=== PATIENT | female | born 1935 | race Caucasian/White ===

== ENCOUNTER 2019-03-15 12:39 | Inpatient (IN) | payer MEDICARE ==
[~2019-03-15] VITALS: Ht 157.5 cm; Wt 68.9 kg
[2019-03-15 13:07] LABS: BASOPHILS % (AUTO) 0.3 % (0.0-5.0); HEMATOCRIT 44.5 % (36-48); LYMPHOCYTES % (AUTO) 6.1 % (21.0-51.0); MEAN CORPUSCULAR HEMOGLOBIN 30.3 pg (27.0-33.0); MEAN CORPUSCULAR HGB CONC 34.1 g/dL (32.0-36.0); MEAN CORPUSCULAR VOLUME 89.1 fL (79-99); MONOCYTES % (AUTO) 7.4 % (3.0-13.0); NEUTROPHILS % (AUTO) 86.2 % (40.0-77.0); PLATELET COUNT (AUTO) 222 K/uL (130-400); RED BLOOD CELL COUNT(AUTO) 4.99 MIL/uL (4.00-5.50); RED CELL DISTRIBUTION WIDTH 13.8 % (11.0-15.5)
[2019-03-15 13:17] LABS: POTASSIUM 3.8 mmol/L (3.5-5.1)
[2019-03-15 13:26] LABS: INR 0.98 (0.85-1.15); PARTIAL THROMBOPLASTIN TIME 28.2 SEC (26.3-35.5); PROTHROMBIN TIME 10.3 SEC (9.6-11.6)
[2019-03-15] MEDS ORDERED: ONDANSETRON HCL 4 MG/2 ML VIAL ONE (13:35)
[2019-03-15] MEDS ORDERED: MORPHINE SULFATE 2 MG/ML 1ML SYG ONE (13:36)
[2019-03-15 13:40] LABS: ALBUMIN 4.2 g/dL (3.5-5.0); BILIRUBIN,TOTAL 1.5 mg/dL (0.2-1.0); TOTAL PROTEIN, SERUM 7.7 g/dL (6.0-8.3)
[2019-03-15] MEDS ORDERED: SODIUM CHLORIDE 0.9% 500ML 500 ML IV ONE (13:46)
[2019-03-15] MEDS ORDERED: SODIUM CHLORIDE 0.9% 1000ML 1,000 ML IV ONE (14:28)
[2019-03-15 15:08] LABS: APPEARANCE,URINE Clear (CLEAR); BILIRUBIN,URINE Negative (NEGATIVE); COLOR,URINE Yellow (YELLOW); GLUCOSE, URINE (UA) Negative (NEGATIVE); KETONES,URINE Negative (NEGATIVE); LEUKOCYTE ESTERASE ,URINE Negative (NEGATIVE); NITRATE,URINE Negative (NEGATIVE); OCCULT BLOOD,URINE Small (NEGATIVE); PROTEIN,URINE Negative (NEGATIVE); UROBILINOGEN,URINE 0.2 mg/dL (0.2-1.0)
[2019-03-15] MEDS ORDERED: ACETAMINOPHEN-CODEINE 300/30MG TAB PO PRN (15:45)
[2019-03-15] MEDS ORDERED: ACETAMINOPHEN 325 MG TAB PO PRN (15:45)
[2019-03-15 15:49] LABS: BACTERIA,URINE Few /HPF (None Seen); SQUAMOUS EPITHELIAL CELL,UR 0-2 /HPF (0-2)
[2019-03-15 17:05] VITALS: BP 136/71
[2019-03-15] MEDS ORDERED: AMLO5TAB9 PO (17:22)
--- NOTE | 2019-03-15 17:29 | NUR ---
PLACED CALL TO DR ESCOBAR FOR ORTHO CONSULT, NO ANSWER, IN PROCEDURE, WILL CALL AGAIN.
--- NOTE | 2019-03-15 18:16 | NUR ---
SPOKE TO DR. ESCOBAR REGARDING NEW CONSULT. PER DR. ESCOBAR, PATIENT HAS RHABDO AND WOULD NEED TO BE HYDRATED BEFORE PLANNING SURGERY. POSSIBLE SURGERY FOR FRIDAY. PATIENT MAY RESUME DIET.
[2019-03-15 20:12] VITALS: BP 138/71
[2019-03-16] VITALS (7 sets, daily range): BP systolic 115–152; BP diastolic 65–79
[2019-03-16 05:03] LABS: HEMATOCRIT 34.9 % (36-48); MEAN CORPUSCULAR HEMOGLOBIN 30.2 pg (27.0-33.0); MEAN CORPUSCULAR HGB CONC 34.2 g/dL (32.0-36.0); MEAN CORPUSCULAR VOLUME 88.2 fL (79-99); PLATELET COUNT (AUTO) 194 K/uL (130-400); RED BLOOD CELL COUNT(AUTO) 3.96 MIL/uL (4.00-5.50); RED CELL DISTRIBUTION WIDTH 13.9 % (11.0-15.5); WHITE BLOOD COUNT (AUTO) 11.2 K/uL (4.8-10.8)
[2019-03-16 05:32] LABS: BILIRUBIN,TOTAL 0.9 mg/dL (0.2-1.0); CREATININE 0.8 mg/dL (0.5-1.5); POTASSIUM 3.6 mmol/L (3.5-5.1); TOTAL PROTEIN, SERUM 5.9 g/dL (6.0-8.3)
[2019-03-16] MEDS: PANTOPRAZOLE SODIUM 40 MG TABLET.DR PO SCH ×2 (07:56→09:00)
[2019-03-16] MEDS ORDERED: ENOXAPARIN SODIUM 40 MG/0.4 ML SYRINGE SQ SCH (08:30)
[2019-03-16] MEDS: AMLODIPINE BESYLATE 5 MG TAB PO SCH (09:20)
[2019-03-16] MEDS: SODIUM CHLORIDE 0.9% 1000ML 1,000 ML IV SCH ×2 (13:57→15:33)
--- NOTE | 2019-03-16 14:54 | NUR ---
RD NOTIFICATION Diet: Heart Healthy. Meal intake 50% and has good appetite. Pt loves eating sweets instead of food. Pt claims to eat this way all her life and refuses to change that. LBM: 03/14. No significant weight changes noted. Continue current diet Encourage meal intake daily Assisted feedings with all meals if family not present Will monitor and follow up as needed Addendum: 03/16/19 at [address] Amended: Links added.
--- NOTE | 2019-03-16 15:13 | NUR ---
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 ALSO HAS A CANE. NEW REFERRAL FOR SNF, OPTIONS GIVEN. POA AND PATIENT TO DISCUSS OPTIONS FOR SNF. RACHEAL PENDING SIGNATURE. Addendum: 03/16/19 at 1519 by STEFAN JOAQUIN RN CM Amended: Links added.
[2019-03-17] VITALS (24 sets, daily range): BP systolic 107–133; BP diastolic 53–74
[2019-03-17] MEDS: SODIUM CHLORIDE 0.9% 1000ML 1,000 ML IV SCH ×5 (01:43→22:07)
[2019-03-17 05:36] LABS: HEMATOCRIT 30.2 % (36-48); MEAN CORPUSCULAR HEMOGLOBIN 31.2 pg (27.0-33.0); NUCLEATED RED BLOOD CELLS 0.1 % (0.0-0.19); PLATELET COUNT (AUTO) 152 K/uL (130-400); RED CELL DISTRIBUTION WIDTH 13.3 % (11.0-15.5); WHITE BLOOD COUNT (AUTO) 8.4 K/uL (4.8-10.8)
[2019-03-17 05:44] LABS: BAND NEUTROPHILS % (MANUAL) 3 % (0-2); BASOPHILS % (MANUAL) 2 % (0-2); EOSINOPHILS % (MANUAL) 2 % (1-6); LYMPHOCYTES % (MANUAL) 15 % (22-44); MAN.DIFF COMMENT-IMPRESSION MANUAL DIFFERENTIAL; MONOCYTES % (MANUAL) 6 % (2-9); PLATELET MORPHOLOGY COMMENT ADEQUATE; SEGMENTED NEUTROPHILS % 72 % (40-70)
[2019-03-17 05:56] LABS: ALBUMIN 2.5 g/dL (3.5-5.0); BILIRUBIN,TOTAL 0.8 mg/dL (0.2-1.0); CREATININE 0.7 mg/dL (0.5-1.5); POTASSIUM 3.2 mmol/L (3.5-5.1)
[2019-03-17] MEDS ORDERED: CEFAZOLIN SODIUM 1 GM VIAL IVP PRN (06:00)
--- NOTE | 2019-03-17 06:51 | NUR ---
OFF OF UNIT PT BEING TRANSFERRED TO PRE-OP AT THIS TIME. AWAKE, ALERT AND RESPONSIVE, NO C/O PAIN OR DISCOMFORT AT THIS TIME. DENTURES WERE LEFT IN PATIENT ROOM, INSIDE DENTURE CUP. NO FAMILY MEMBERS AT BEDSIDE AT THIS TIME.
[2019-03-17] MEDS ORDERED: LACTATED RINGERS 1000ML 1,000 ML IV ONE (06:57)
[2019-03-17] MEDS ORDERED: CEFAZOLIN SODIUM 1 GM VIAL ONE (07:39)
[2019-03-17] MEDS ORDERED: LIDOCAINE PF 2% 5ML ABBOJECT ONE (08:09)
[2019-03-17] MEDS ORDERED: ROCURONIUM 10MG/1ML SYR 10 MG/ML ML ONE (08:10)
[2019-03-17] MEDS ORDERED: SUCCINYLCHOLINE 200MG/10ML SYR ONE (08:10)
[2019-03-17] MEDS ORDERED: PROPOFOL 10 MG/ML 20ML VIAL IV ONE (08:10)
[2019-03-17] MEDS ORDERED: FENTANYL CITRATE PF 50 MCG/1 ML 2ML VIAL ONE (08:10)
[2019-03-17] MEDS ORDERED: ROPIVACAINE 0.5% 5MG/ML 30ML IJ ONE (08:11)
[2019-03-17] MEDS ORDERED: EPHEDRINE SULFATE 50 MG/ML AMPULE ONE (09:05)
[2019-03-17] MEDS ORDERED: PHENYLEPHRINE HCL 10 MG/ML 1ML VIAL IV ONE (10:19)
[2019-03-17] MEDS ORDERED: ONDANSETRON HCL 4 MG/2 ML VIAL ONE (11:48)
[2019-03-17] MEDS ORDERED: GLYCOPYRROLATE 1 MG/5 ML SYRINGE ONE (11:48)
[2019-03-17] MEDS ORDERED: NEOSTIGMINE 5MG/5ML SYR IV ONE (11:48)
[2019-03-17] MEDS ORDERED: ESMOLOL HCL 10 MG/ML 10 ML VIAL ONE (11:54)
[2019-03-17] MEDS ORDERED: POTASSIUM CHLORIDE 20MEQ/100ML 100 ML IV PRN (12:15)
[2019-03-17] MEDS ORDERED: TEMAZEPAM 15 MG CAPSULE PO PRN (12:15)
[2019-03-17] MEDS ORDERED: DIPHENHYDRAMINE HCL 25 MG CAPSULE PO PRN (12:15)
[2019-03-17] MEDS ORDERED: HYDROCODONE/ACETAMINOPHEN 5/325 MG TAB PO PRN ×2 (12:15)
[2019-03-17] MEDS ORDERED: LIDOCAINE HCL-MPF 1% 2ML VIAL IV PRN (12:15)
[2019-03-17] MEDS ORDERED: CALCIUM CARBONATE 500 MG TABLET PO PRN (12:15)
[2019-03-17] MEDS ORDERED: PROMETHAZINE HCL 25 MG/ML 1ML AMPULE IM PRN (12:15)
[2019-03-17] MEDS ORDERED: DiphenhydrAMINE HCL 50 MG/ML VIAL IVP PRN (12:15)
[2019-03-17] MEDS ORDERED: FERROUS FUMARATE 324 MG TABLET PO PRN (12:15)
[2019-03-17] MEDS: ACETAMINOPHEN EXTRA STRENGTH 500 MG TABLET PO SCH ×2 (12:15→19:37)
[2019-03-17] MEDS ORDERED: POTASSIUM CHLORIDE 10% ELIXIR 20 MEQ/15 ML UDCUP PO PRN (12:15)
[2019-03-17] MEDS: AMLODIPINE BESYLATE 5 MG TAB PO SCH (14:30)
[2019-03-17] MEDS: PANTOPRAZOLE SODIUM 40 MG TABLET.DR PO SCH (14:31)
[2019-03-17] MEDS: POTASSIUM CHLORIDE 20 MEQ ERTAB PO PRN ×3 (14:32→19:32)
--- NOTE | 2019-03-17 14:47 | NUR ---
CM Note; [facility] pending acceptance CM met with pt and family discussed MD recommendations for short term rehab, pt and POA agreeable, RACHEAL signed for [facility]. Faxed order, clinicals, PT, and [facility], confirmation received. Spoke to Kiz[facility] will come eval pt. Pt pending acceptance. EMS arranged and faxed for tomorrow, primary nurse to call [facility] once pt ready to DC. Primary nurse aware. CM to cont to follow up.
--- NOTE | 2019-03-17 15:43 | NUR ---
CM Note: [facility] acceptance CM spoke to Kizzy De Jesus, pt has acceptance. EMS arranged and faxed for tomorrow, primary nurse to call [facility] once pt ready to DC. Primary nurse aware. CM to cont to follow up.
[2019-03-17] MEDS: CEFAZOLIN SODIUM 1 GM VIAL IVP SCH (17:09)
[2019-03-17] MEDS: KETOROLAC TROMETHAMINE 15MG/ML IV PRN (19:37)
--- NOTE | 2019-03-17 20:00 | NUR ---
ASSESSMENT NOTE PATIENT AWAKE, ALERT, OX3, NO SOB, NO C/O PAIN AT THIS TIME, ENCOURAGE PATIENT TO TAKE DEEP BREATHING EXERCISES, RIGHT ARM WITH SLING INTACT, ELEVATED ON PILLOW, DRESSING RIGHT SHOULDER D/I, TEACH PATIENT AND FAMILY PLAN OF CARE AND EXPECTED OUTCOME, PATIENT VERBALIZES UNDERSTANDING VIA TEACH BACK, CALL BRUCE AT [facility]
[2019-03-17] MEDS: FAMOTIDINE 20MG TAB 20 MG TAB PO SCH (22:07)
[2019-03-18] MEDS: CEFAZOLIN SODIUM 1 GM VIAL IVP SCH ×3 (00:57→08:57)
[2019-03-18] MEDS: SODIUM CHLORIDE 0.9% 1000ML 1,000 ML IV SCH (03:12)
[2019-03-18 04:00] VITALS: BP 131/58
[2019-03-18] MEDS: KETOROLAC TROMETHAMINE 15MG/ML IV PRN (04:44)
[2019-03-18] MEDS: ACETAMINOPHEN EXTRA STRENGTH 500 MG TABLET PO SCH ×2 (04:45→12:53)
[2019-03-18 05:35] LABS: HEMATOCRIT 27.8 % (36-48); MEAN CORPUSCULAR HEMOGLOBIN 30.9 pg (27.0-33.0); MEAN CORPUSCULAR HGB CONC 34.4 g/dL (32.0-36.0); MEAN CORPUSCULAR VOLUME 89.8 fL (79-99); PLATELET COUNT (AUTO) 164 K/uL (130-400); RED CELL DISTRIBUTION WIDTH 13.3 % (11.0-15.5); WHITE BLOOD COUNT (AUTO) 6.8 K/uL (4.8-10.8)
[2019-03-18 05:44] LABS: BAND NEUTROPHILS % (MANUAL) 2 % (0-2); EOSINOPHILS % (MANUAL) 2 % (1-6); LYMPHOCYTES % (MANUAL) 20 % (22-44); MAN.DIFF COMMENT-IMPRESSION MANUAL DIFFERENTIAL; MONOCYTES % (MANUAL) 10 % (2-9); PLATELET MORPHOLOGY COMMENT ADEQUATE; SEGMENTED NEUTROPHILS % 66 % (40-70)
[2019-03-18 05:59] LABS: CREATININE 0.8 mg/dL (0.5-1.5); POTASSIUM 3.7 mmol/L (3.5-5.1)
[2019-03-18 07:43] VITALS: BP 118/59
[2019-03-18 08:10] LABS: APPEARANCE,URINE Clear (CLEAR); BILIRUBIN,URINE Negative (NEGATIVE); COLOR,URINE Yellow (YELLOW); GLUCOSE, URINE (UA) Negative (NEGATIVE); KETONES,URINE Negative (NEGATIVE); LEUKOCYTE ESTERASE ,URINE Negative (NEGATIVE); NITRATE,URINE Negative (NEGATIVE); OCCULT BLOOD,URINE Small (NEGATIVE); PROTEIN,URINE Negative (NEGATIVE); UROBILINOGEN,URINE 0.2 mg/dL (0.2-1.0)
[2019-03-18 08:21] LABS: BACTERIA,URINE Rare /HPF (None Seen); RBC,URINE 0-1 /HPF (0-1); SQUAMOUS EPITHELIAL CELL,UR Rare /HPF (0-2)
[2019-03-18] MEDS ORDERED: ENOXAPARIN SODIUM 40 MG/0.4 ML SYRINGE SQ SCH (09:00)
[2019-03-18] MEDS: AMLODIPINE BESYLATE 5 MG TAB PO SCH (09:00)
[2019-03-18] MEDS: PANTOPRAZOLE SODIUM 40 MG TABLET.DR PO SCH (09:00)
[2019-03-18] MEDS ORDERED: POLYETHYLENE GLYCOL 3350 17 GM POWD.PACK PO SCH (09:00)
[2019-03-18 10:45] VITALS: BP 129/56
[2019-03-18] MEDS: FAMOTIDINE 20MG TAB 20 MG TAB PO SCH (11:04)
--- NOTE | 2019-03-18 15:00 | NUR ---
DR. ESCOBAR CALLED MD TO REPORT PRIMARY MD PLAN TO DISCHARGE/TRANSFER TODAY TO [facility]. DR. ESCOBAR GAVE ORDERS OVER TELEPHONE. READBACK ORDERS TO .
--- NOTE | 2019-03-18 16:30 | NUR ---
DISCHARGE NURSE REPORT GIVEN TO DARRIN DUARTE OF [facility] [phone]. INFORMED OF MEDICATIONS RECONCILIATION. INFORMED OF DR. ESCOBAR DISCHARGE ORDERS AND SCHEDULED F/U WITH DR. ESCOBAR. FAXED MEDICATION RECONCILIATION TO [facility] [phone]. COPY OF DR. ESCOBAR DISCHARGE ORDERS AND COPY OF MEDICATION RECONCILIATION PLACED IN CHART COPY FOLDER.
--- NOTE | 2019-03-18 16:33 | NUR ---
[facility] CALLED TO INFORMED PATIENT IN ROOM 403 AND READY TO BE PICKED UP AND TRANSFERRED TO [facility].
--- NOTE | 2019-03-18 16:45 | NUR ---
DISCHARGE TEACHING DISCHARGE TEACHING PROVIDED TO PATIENT AND JOVANLUZ AVALOS (PATIENT POA). PATIENT IS FORGETFUL SO JOVAN AVALOS SIGNED DISCHARGED PAPERWORK. INFORMED OF DR. SPARKS DISCHARGE ORDERS (MEDICATION RECONCILIATION0, DR. ESCOBAR DISCHARGE ORDERS (DAILY DRESSING CHANGE, ARM SLING IN PLACE TO RIGHT ARM, NO PHYSICAL THERAPY FOR NOW, AND SCHEDULED F/U APPT WITH DR. ESCOBAR. REMOVED 22G IV FROM LEFT FA, CATHETER TIP INTACT. PERFORMED RIGHT SHOULDER DRESSING CHANGE PRIOR TO DISCHARGE. RIGHT SHOULDER INCISION APPROXIMATED, NO DRAINAGE NOTED. CLEANSED RIGHT SHOULDER WITH BETADINE, COVERED WITH 4X4 GAUZE AND SECURED WITH MEDIPORE TAPE. RIGHT ARM SLING IN PLACE AT TIME OF DISCHARGE.
[2019-03-19] MEDS ORDERED: BISACODYL 5 MG TABLET.DR PO PRN (12:15)
[2019-03-20] MEDS ORDERED: BISACODYL 10 MG SUPP.RECT RC PRN (12:15)
== END 2019-03-18 17:12 | DRG 493 ==
LOC: EDH 12:39 → EDHIP 15:10 → 4AH 16:13
PROVIDERS: ADMIT Internal Medicine Nephrology; ATTEND Internal Medicine Nephrology
PROC: 0PSC04Z Reposition Right Humeral Head with Internal Fixation Device, Open Approach (ICD-10-PCS; principal; 2019-03-17 09:43)
DX: S42.211A Unspecified displaced fracture of surgical neck of right humerus, initial encounter for closed fracture (principal); M62.82 Rhabdomyolysis; N17.9 Acute kidney failure, unspecified; D72.829 Elevated white blood cell count, unspecified; E78.1 Pure hyperglyceridemia; E87.6 Hypokalemia; I10 Essential (primary) hypertension; W19.XXXA Unspecified fall, initial encounter; Y93.89 Activity, other specified; Y92.89 Other specified places as the place of occurrence of the external cause; Y99.8 Other external cause status
CPT/HCPCS: 36415; 70450; 71045; 73030; 73060; 73502; 80048; 80053; 81001; 82550; 84484; 85025; 85027; 85610; 85730; 87088; 93005; 97039; A4565; G0378; J0330; J0690; J1650; J1885; J2001; J2370; J2405; J2704; J2710; J2795; J3010; J3490; J7030; J7040; J7120